=== PATIENT | female | born 1995 | race African-American/Black ===

== ENCOUNTER 2018-12-19 18:34 | Emergency (ER) | payer MEDICAID ==
[~2018-12-19] VITALS: Ht 167.6 cm; Wt 104.3 kg
[2018-12-19] MEDS ORDERED: ALBUTEROL SULF8.5 GM INH (18:45)
--- NOTE | 2018-12-19 18:47 | Emergency Room Report ---
History of Present Illness General Chief Complaint: Complications Source: Patient Present Illness HPI 23-year-old female presents to the emergency department complaining of vaginal bleeding that she states is a light amount she reports more than spotting however not the amount that she would typically get during her cycle. Patient states that she is currently 27 weeks she is she states that she has not had any complications as far during her she denies history of previous vaginal bleeding during . Patient states that bleeding at onset was at 3 PM today she also states that she has been feeling movement. Reports 5 out of 10 in severity lower abdominal discomfort described as pressure. She denies fevers, chills, low back pain, or abdominal tenderness. Denies abdominal cramping/ contractions. Pt. denies excessive walking, trauma or fall. Denies hx of bleeding disorders. Allergies: Coded Allergies: No Known Allergies (Unverified , 12/19/18) Patient History Past Medical History: see triage record Past Surgical History: none Pertinent Family History: none Last Menstrual Period: 06/06/18 Now: Yes Reviewed Nursing Documentation: PMH: Agreed; PSxH: Agreed Nursing Documentation-PMH Past Medical History: No History, Except For Hx Asthma: Yes Review of Systems All Other Systems: negative except mentioned in HPI Physical Exam Sp02 EP Interpretation: reviewed, normal General Appearance: no apparent distress, alert, GCS 15, non-toxic Head: normocephalic, atraumatic Eyes: bilateral eye normal inspection, bilateral eye PERRL ENT: hearing grossly normal, normal voice Neck: full range of motion Respiratory: lungs clear, normal breath sounds, speaking full sentences Cardiovascular #1: regular rate, rhythm Gastrointestinal: normal bowel sounds, non tender, soft, non-distended, no guarding, other - Gravid Genitourinary: normal inspection, no CVA tenderness, os closed, other - no blood in the vaginal vault Musculoskeletal: back normal, gait/station normal, normal range of motion, non- tender Neurologic: alert, oriented x3, responsive, motor strength/tone normal, sensory intact, speech normal, grossly normal Psychiatric: judgement/insight normal Skin: normal color, no rash, warm/dry, well hydrated Medical Decision Making PA Attestation Dr. Yuen is my supervising Physician whom patient management has been discussed with. Diagnostic Impression: Primary Impression: Spotting during in third trimester Additional Impressions: Threatened miscarriage Threatened labor Qualified Codes: O47.03 - False labor before 37 completed weeks of gestation, third trimester ER Course 23-year-old female presents to the emergency department complaining of vaginal bleeding that she states is a light amount she reports more than spotting however not the amount that she would typically get during her cycle. Patient states that she is currently 27 weeks she is she states that she has not had any complications as far during her she denies history of previous vaginal bleeding during . Patient states that bleeding at onset was at 3 PM today she also states that she has been feeling movement. Reports 5 out of 10 in severity lower abdominal discomfort described as pressure. She denies fevers, chills, low back pain, or abdominal tenderness. Denies abdominal cramping/ contractions. Pt. denies excessive walking, trauma or fall. Denies hx of bleeding disorders. Ddx considered but are not limited to: labor, Fibroid, Spontaneous , STI just to name a few. Vital signs: are WNL, pt. is afebrile H&PE are most consistent with: vaginal bleeding -resolved during 3rd trimester of . will r/o UTI ORDERS: -CBC: Unremarkable no evidence of significant acute blood loss. - Blood/RH type and screen- O POSITIVE -Pelvic US complete- normal intrauterine estimated at 28weeks and 0 Zero days gestation. HR was 157bpm, the length of the cervix was 4.6, no free fluid/ blood noted by US wiring technician. ED INTERVENTIONS: None at this time. Discussed with this patient the results of her lab testing as well as ultrasound results. I explained that I do not identify an acute emergent condition at this time however due to being far along in her she is considered high risk and needs to have very close outpatient follow-up. Patient states that she is given a contact her PILLING MACHINE OPERATOR tomorrow she'll be discharged with paperwork as well as results from today's evaluation to take with her. Also discussed with patient that she'll be on bedrest until cleared by PILLING MACHINE OPERATOR. Pt. given strict ED return precautions for worsening or new symptoms. DISCHARGE: At this time pt. is stable for d/c to home. Will provide printed patient care instructions, and any necessary prescriptions. Care plan and follow up instructions have been discussed with the patient prior to discharge. Labs Test 4/17/19 19:15 White Blood Count 10.8 K/UL (4.8-10.8) Red Blood Count 4.20 M/UL (4.20-5.40) Hemoglobin 11.3 G/DL (12.0-16.0) Hematocrit 34.5 % (37.0-47.0) Mean Corpuscular Volume 82 FL (80-99) Mean Corpuscular Hemoglobin 27.0 PG (27.0-31.0) Mean Corpuscular Hemoglobin Concent 32.9 G/DL (32.0-36.0) Red Cell Distribution Width 11.8 % (11.6-14.8) Platelet Count 209 K/UL (150-450) Mean Platelet Volume 6.6 FL (6.5-10.1) Neutrophils (%) (Auto) 81.0 % (45.0-75.0) Lymphocytes (%) (Auto) 11.1 % (20.0-45.0) Monocytes (%) (Auto) 4.2 % (1.0-10.0) Eosinophils (%) (Auto) 2.8 % (0.0-3.0) Basophils (%) (Auto) 0.9 % (0.0-2.0) Urine Color Yellow Urine Appearance Clear Urine pH 7 (4.5-8.0) Urine Specific [place] 1.005 (1.005-1.035) Urine Protein Negative (NEGATIVE) Urine Glucose (UA) Negative (NEGATIVE) Urine Ketones 1+ (NEGATIVE) Urine Blood 2+ (NEGATIVE) Urine Nitrite Negative (NEGATIVE) Urine Bilirubin Negative (NEGATIVE) Urine Urobilinogen Normal MG/DL (0.0-1.0) Urine Leukocyte Esterase 1+ (NEGATIVE) Urine RBC 2-4 /HPF (0 - 2) Urine WBC 0-2 /HPF (0 - 2) Urine Squamous Epithelial Cells Few /LPF (NONE/OCC) Urine Bacteria Few /HPF (NONE) CT/MRI/US Diagnostic Results CT/MRI/US Diagnostic Results : Imaging Test Ordered: US OB 3rd Trimester. Impression --normal intrauterine estimated at 28weeks and 0 Zero days gestation. HR was 157bpm, the length of the cervix was 4.6, no free fluid/ blood noted by US wiring technician. Status: improved Disposition: HOME, SELF-CARE Condition: Stable Departure Forms: Return to Work Return to Work Date: Dec 24, 2018 Work Restrictions: No Heavy Lifting, No Prolonged Standing Return to Full Activity: Dec 24, 2018 Patient Instructions: Labor Information, Vaginal Bleeding During , Third Trimester, [id number] Additional Instructions: Take any previously prescribed medications as directed. BED REST UNTIL CLEARED BY OBGYN Follow up with a OBGYN within 3 days ( 72 hours) , even if your symptoms have resolved. Return sooner to ED if new symptoms occur, or current symptoms become worse. - Please note that this Emergency Department Report was dictated using [employer] folder technology software, occasionally this can lead to erroneous entry secondary to interpretation by the dictation equipment. Sammie Vergara Dec 19, 2018 18:47
--- NOTE | 2018-12-19 18:48 | NUR ---
ED Nurse Note: Pt came into the ER w/ complaints of vaginal bleeding x 2 hours ago. Pt denies any pain. Pt is 27 weeks . Pt states that light pink scant bleeding occurred. Pt is A + O x4. Ambulatory. Skin warm to touch.
--- NOTE | 2018-12-19 19:03 | NUR ---
HAND-OFF: Report given to GURWINDER Bocanegra.
--- NOTE | 2018-12-19 19:31 | NUR ---
ED Nurse Note: US at bedside
[2018-12-19 19:36] LABS: BASOPHILS % (AUTO) 0.9 % (0.0-2.0); EOSINOPHILS % (AUTO) 2.8 % (0.0-3.0); HEMATOCRIT 34.5 % (37.0-47.0); HEMOGLOBIN 11.3 G/DL (12.0-16.0); LYMPHOCYTES % (AUTO) 11.1 % (20.0-45.0); MEAN CORPUSCULAR VOLUME 82 FL (80-99); MONOCYTES % (AUTO) 4.2 % (1.0-10.0); PLATELET COUNT 209 K/UL (150-450); RED CELL DISTRIBUTION WIDTH 11.8 % (11.6-14.8); WHITE BLOOD COUNT 10.8 K/UL (4.8-10.8)
[2018-12-19 19:57] LABS: APPEARANCE,URINE CLEAR; BILIRUBIN, URINE NEGATIVE (NEGATIVE); GLUCOSE, URINE (UA) NEGATIVE (NEGATIVE); KETONES,URINE 1+ (NEGATIVE); LEUKOCYTE ESTERASE ,URINE 1+ (NEGATIVE); NITRITE,URINE NEGATIVE (NEGATIVE); PH,URINE 7 (4.5-8.0); PROTEIN,URINE NEGATIVE (NEGATIVE); UROBILINOGEN,URINE NORMAL MG/DL (0.0-1.0)
[2018-12-19 20:00] LABS: COLOR,URINE YELLOW
[2018-12-19 21:04] VITALS: BP 105/57
--- NOTE | 2018-12-19 21:04 | NUR ---
ER DISCHARGE NOTE: Patient is cleared to be discharged per ERMD, pt is aox4, on room air, with stable vital signs. pt was given dc instructions, pt was able to verbalize understanding, pt id band removed. pt is able to ambulate with steady gait. pt took all belongings.
--- NOTE | 2018-12-20 12:28 | Diagnostic Imaging Report ---
Indications: Positive test with pelvic pain and light spotting Technique: Transabdominal real-time grayscale and duplex Doppler imaging of intrauterine was performed. Comparison: None. Findings: A single living intrauterine is noted. heart rate of 157 bpm noted. Cardiac motion is noted on cine clips. A three-vessel cord is identified. Amniotic fluid index within normal limits. Approximate ultrasound age of 28 weeks. No gross anatomic abnormality identified however evaluation for such is limited on this emergent scan. Recommend obstetric follow-up with complete anatomy scan. Placenta is anterior. No abnormal placentation identified. Cervix is long and closed. IMPRESSION: Single living intrauterine with approximate gestational age by ultrasound of 28 weeks. heart rate of 157 bpm. Cervix long and closed. No evidence of abnormal placentation. No gross anatomic abnormality appreciated however evaluation for such is limited on this emergent scan. Recommend routine complete anatomy scan if not performed already. Note: An unremarkable ultrasound evaluation does not insure well-being or positive outcome for the . Clinical evaluation by MOBILE ENGINEER is highly recommended.
== END 2018-12-19 21:03 | disposition home or self-care (01) ==
LOC: EMR 19:16
DX: O20.0 Threatened abortion (principal); Z3A.27 27 weeks gestation of pregnancy; O47.02 False labor before 37 completed weeks of gestation, second trimester; O26.852 Spotting complicating pregnancy, second trimester; O99.512 Diseases of the respiratory system complicating pregnancy, second trimester; J45.909 Unspecified asthma, uncomplicated
CPT/HCPCS: 36415; 76805; 81003; 85025; 86900; 86901; 99284